=== PATIENT | male | born 1985 | race Caucasian/White ===

== ENCOUNTER 2024-08-28 13:42 | Observation (INO) | payer OTHER ==
[2024-08-28] MEDS ORDERED: IBUPROFEN 200 MG TAB PO ONE (14:39)
[2024-08-28] MEDS ORDERED: IBUPROFEN 400 MG TAB ONE (14:39)
[2024-08-28] MEDS ORDERED: NA CHLORIDE 0.9% 1,000 ML ONE ×2 (14:40→16:50)
[2024-08-28 14:50] LABS: Absolute Basophils 0.1 K/uL (0-0.5); Absolute Eosinophils 0.1 K/uL (0-0.5); Absolute Lymphocytes (CBC) 1.5 K/uL (0.7-4.9); Absolute Monocytes 1.2 K/uL (0.1-1.3); Absolute Neutrophil 18.9 K/uL (1.8-8.0); Basophils % 0.4 % (0-1.3); Eosinophils % 0.6 % (0-4.4); Hematocrit 43.5 % (39.6-49.0); MCH 29.3 pg (27.0-35.0); MCHC 32.2 g/dL (32.0-36.0); MCV 91.1 fL (80-100); MPV 7.5 fL (7.6-11.3); Monocytes % 5.3 % (3.3-12.3); Neutrophils % 86.7 % (41.7-73.7); Platelets 428 thou/uL (152-406); RBC Red Blood Cell Count 4.78 M/uL (4.33-5.43); Red Cell Distribution Width 13.3 % (12.1-15.2)
[2024-08-28 15:05] LABS: Albumin 3.7 g/dL (3.4-5.0); Albumin/Globulin Ratio 0.9 (1.1-1.8); Anion Gap 9.1 mEq/L (5.0-15.0); Bilirubin Total 0.5 mg/dL (0.2-1.0); Globulin 4.2 g/dL (2.3-3.5); Potassium 4.1 mEq/L (3.5-5.1); Protein, Total 7.9 g/dL (6.4-8.2); SARS-CoV-2 Antigen CONTROL BLUE LINE VIS/BG OK; SARS-CoV-2 Antigen Rapid Res Negative (Negative)
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
--- NOTE | 2024-08-28 16:25 | RAD REPORT ---
EXAM: CT CHEST, ABDOMEN AND PELVIS WITHOUT CONTRAST CLINICAL INDICATION: Male, 39 years Cough;Dyspnea TECHNIQUE: CT chest, abdomen and pelvis was performed, with IV contrast, as per department protocol. Axial, sagittal and coronal reconstructions were obtained. One or more of the following dose reduction techniques were used: Automated exposure control, adjustment of the mA and/or kV according to the patient size, and/or iterative reconstruction. Unless otherwise specified, incidental findings do not require dedicated imaging follow-up. [id number]. COMPARISON: No prior exam. FINDINGS: Chest: LOWER NECK/CHEST WALL: Visualized thyroid gland and soft tissues are normal. LUNGS AND AIRWAYS: Significant nodularity is present within the mid and lower lungs bilaterally. No c onsolidative airspace disease. PLEURA: No pleural effusion. No pneumothorax. Hemidiaphragms are normally positioned. MEDIASTINUM AND LYMPH NODES: No mediastinal mass or fluid collection. Normal size mediastinal, hilar, and axillary lymph nodes. THORACIC AORTA: Normal caliber and configuration. PULMONARY ARTERIES: Normal caliber. HEART: Unremarkable. Abdomen/Pelvis UPPER GI: No significant abnormality. LIVER: Hepatic steatosis, but otherwise unremarkable. GALLBLADDER/BILE DUCTS: No biliary ductal dilatation.? PANCREAS: No mass, ductal dilation, or kraig-pancreatic fluid. SPLEEN: Unremarkable. ADRENALS: No adrenal masses. KIDNEYS AND URETERS: Normal size and contour. No hydronephrosis.No suspicious renal mass. ABDOMINAL AORTA AND OTHER VESSELS: Normal caliber aorta and IVC. PERITONEUM: No abnormal free fluid. No free air. LYMPH NODES: No pathologic lymphadenopathy. ABDOMINAL WALL: No significant abnormality. SMALL BOWEL/COLON: Small bowel has normal course and caliber. No colonic wall thickening or pericolon ic inflammatory changes.Normal appendix. URINARY BLADDER: Underdistended but grossly unremarkable. REPRODUCTIVE ORGANS: No pathologic process. MUSCULOSKELETAL: No acute or suspicious osseous abnormality. ADDITIONAL FINDINGS: None. IMPRESSION: No evidence of significant trauma to the chest, abdomen, or pelvis. Moderate bilateral micronodularity could reflect aspiration versus a nonspecific infectious or inflam matory process (including atypical/viral sources).
[2024-08-28] MEDS ORDERED: AZITHROMYCIN 500 MG INJ IVPB ONE (16:49)
[2024-08-28] MEDS ORDERED: CEFTRIAXONE 2000 MG/VIAL ONE (16:49)
[2024-08-28] MEDS ORDERED: NA CHLORIDE 0.9% 500 ML ONE (16:49)
[2024-08-28] MEDS ORDERED: NA CHLORIDE 0.9% 250 ML ONE (16:49)
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
[2024-08-28] MEDS ORDERED: LEVALBUTEROL 1.25 MG/3 ML NEB ONE (16:58)
[2024-08-28] MEDS ORDERED: IPRATROPIUM BROM 0.5MG/2.5ML ONE (16:58)
[2024-08-28] MEDS ORDERED: GUAIFENESIN/CODEINE 5ML UCUP PO PRN (17:52)
[2024-08-28] MEDS ORDERED: ACETAMINOPHEN 500 MG TAB PO PRN (17:52)
[2024-08-28] MEDS ORDERED: ONDANSETRON 4 MG/2 ML VIAL IV PRN (17:52)
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
[2024-08-28 18:22] LABS: Platelet Estimate INCR; White Blood Cell Scan OK (OK)
[2024-08-28 18:23] LABS: Blood Morphology Comment NOT SEEN (NOT SEEN)
[2024-08-28] MEDS ORDERED: levoFLOXacin 750 MG TAB ONE (18:56)
[2024-08-28] MEDS: NA CHLORIDE 0.9% 1,000 ML IV SCH (20:00)
[2024-08-28] MEDS: Levofloxacin 750mg IV 750 MG/150 ML BAG IV SCH (20:06)
[2024-08-28] MEDS: METHYLPREDNISOLONE 125 MG INJ IV SCH (20:09)
[2024-08-28] MEDS: ALBUTEROL 2.5 MG/3 ML NEB SOL NEB SCH (20:21)
[2024-08-28] MEDS: IPRATROPIUM BROM 0.5MG/2.5ML NEB SCH (20:22)
[2024-08-28 20:35] VITALS: BMI 27.3
[2024-08-29 05:24] LABS: Absolute Lymphocytes (CBC) 0.6 K/uL (0.7-4.9); Absolute Monocytes 0.1 K/uL (0.1-1.3); Absolute Neutrophil 13.6 K/uL (1.8-8.0); Basophils % 0.1 % (0-1.3); Hematocrit 40.1 % (39.6-49.0); Hemoglobin 12.8 g/dL (13.6-17.9); Lymphocytes % 3.9 % (15.3-44.8); MCH 29.3 pg (27.0-35.0); MCHC 31.9 g/dL (32.0-36.0); MCV 91.9 fL (80-100); MPV 7.8 fL (7.6-11.3); Monocytes % 0.9 % (3.3-12.3); Neutrophils % 95.1 % (41.7-73.7); Platelets 410 thou/uL (152-406); RBC Red Blood Cell Count 4.37 M/uL (4.33-5.43); Red Cell Distribution Width 13.1 % (12.1-15.2)
[2024-08-29 05:41] LABS: Albumin 3.2 g/dL (3.4-5.0); Albumin/Globulin Ratio 0.8 (1.1-1.8); Anion Gap 10.9 mEq/L (5.0-15.0); Bilirubin Total 0.2 mg/dL (0.2-1.0); Globulin 4.1 g/dL (2.3-3.5); Magnesium 2.4 mg/dL (1.6-2.4); Phosphorus 3.3 mg/dL (2.5-4.9); Potassium 4.9 mEq/L (3.5-5.1); Protein, Total 7.3 g/dL (6.4-8.2)
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
[2024-08-29] MEDS: ENOXAPARIN 40 MG/0.4 ML SQ SCH (08:14)
[2024-08-29 12:27] VITALS: BP 141/71; TEMP 98.3
[2024-08-29 13:59] VITALS: O2SAT 91
== END 2024-08-29 14:00 | disposition home or self-care (01) ==
LOC: ER 13:42 → ERHOLD 17:52 → 2ND 19:11
PROVIDERS: ADMIT Hospitalist; ATTEND Hospitalist
DX: J15.8 Pneumonia due to other specified bacteria (principal); R09.02 Hypoxemia; S19.9XXA Unspecified injury of neck, initial encounter; V43.62XA Car passenger injured in collision with other type car in traffic accident, initial encounter; Y93.89 Activity, other specified; Y92.410 Unspecified street and highway as the place of occurrence of the external cause; Z11.52 Encounter for screening for COVID-19
CPT/HCPCS: 87040 ×2; 85025 ×2; 36415; 83735; 84100; 80061; 83605; 80053 ×2; 84145; 83880; 87804 ×2; 70450; 72125; 71260; 74177; 73080; 73090; 73060; 94640 ×3; 94760 ×3; 99285; 87811; Q9967; J2919 ×4; J0696; G0378 ×3; J1650; J7030; J7040; J7050; J7613; J7614; J7644